=== PATIENT | female | born 1950 | race Caucasian/White ===

== ENCOUNTER 2020-05-02 13:43 | Inpatient (IN) | payer MEDICARE, OTHER ==
[~2020-05-02] VITALS: Ht 160 cm; Wt 74.6 kg
[~2020-05-02 13:43] MED LIST: ACET650S25 PO; ALLO300T2 MT; AMLO10TA80 MT; ATEN50TA MT; ATROPINE SULFATE 1MG/10ML SYR ONE; DOCU-150 PO; ETOMIDATE 2MG/ML 10ML VIAL IV ONE; GLIP10TA10 PO; OMEP20CA14 MT; ONDA4TAB5 MT; SODIUM CHLORIDE 0.9% 10ML VIAL ONE; SUCCINYLCHOLINE CHLORIDE 200MG/10ML IV ONE; VECURONIUM BROMIDE 10 MG/VIAL IV ONE
[2020-05-02] MEDS ORDERED: SODIUM CHLORIDE 0.9% 1,000 ML IV ONE (14:15)
[2020-05-02] MEDS ORDERED: NOREPINEPHRINE 8MG/250ML PMX 250 ML IV ONE (15:00)
[2020-05-02] MEDS: NOREPINEPHRINE 8 MG in DEXT 5% WATER 242 ML IV PRN (15:28)
[2020-05-02 15:40] LABS: HEMOGLOBIN. 7.3 g/dL (12.0-16.0); MEAN CORPUSCULAR HEMOGLOBIN 29.9 pg (28.0-32.0); MEAN CORPUSCULAR VOLUME 102.7 fL (81.0-99.0); MEAN PLATELET VOLUME 8.7 fl (7.4-10.4); PLATELET 198 x1000/uL (130-400); RED BLOOD CELL COUNT 2.44 mill/uL (4.2-5.4); RED CELL DISTRIBUTION WIDTH 26.8 % (11.6-14.6)
[2020-05-02 15:47] LABS: CHLORIDE 109 mEq/L (98-107)
[2020-05-02] MEDS ORDERED: VANCOMYCIN 1 G PREMIX 200 ML IV ONE (16:00)
[2020-05-02] MEDS ORDERED: PIPERACILLIN/TAZ 3.375G PREMIX 50 ML IV ONE (16:00)
[2020-05-02] MEDS ORDERED: CALCIUM CHLORIDE 1GM/10ML SYR IV NR (16:15)
[2020-05-02] MEDS ORDERED: DEXTROSE 50% WATER 50ML SYRINGE IV NR (16:15)
[2020-05-02] MEDS ORDERED: ACETAMINOPHEN 325MG TABLET PO PRN (16:15)
[2020-05-02] MEDS ORDERED: NALOXONE HCL 0.4 MG/ML 1ML VIAL IV NR (16:15)
[2020-05-02] MEDS ORDERED: INSULIN REGULAR (HUMULIN R) 300UNITS/3ML VIAL IV NR (16:15)
[2020-05-02] MEDS ORDERED: SODIUM BICARBONATE 8.4% 1 MEQ/ML 50ML SYR IV NR ×2 (16:15→17:15)
[2020-05-02] MEDS ORDERED: SODIUM POLYSTYRENE SULFONATE 15 G/60 ML BOT PO NR (16:15)
[2020-05-02] MEDS ORDERED: ONDANSETRON HCL 4MG/2ML INJ IV PRN (16:15)
[2020-05-02] MEDS ORDERED: VANCOMYCIN 500 MG PREMIX 100 ML IV NR (16:30)
[2020-05-02] MEDS ORDERED: VANCOMYCIN 1 G PREMIX 200 ML IV NR (16:30)
[2020-05-02 16:33] LABS: INR 19.8
[2020-05-02 17:12] LABS: BG BASE EXCESS -27.5 mmol/L (-2.0-2.0); BG CARBOXYHEMOGLOBIN 0.3 % (0.5-1.5); BG DEOXYHEMOGLOBIN 0.5 % (0.0-5.0); BG FRACTION INSPIRED OXYGEN 100; BG METHEMOGLOBIN 0.6 % (0.0-1.5); BG OXYGEN SATURATION 99.5 % (92.0-98.5); BG OXYHEMOGLOBIN 98.6 % (94.0-97.0); BG PCO2 31.4 mmHg (35.0-45.0); BG PH 6.823 (7.350-7.450); BG PO2 302.3 mmHg (75.0-100.0); BG SAMPLE SITE RIGHT BRACHIAL; BG TOTAL HEMOGLOBIN 8.4 g/dL (12.0-18.0); BG VENT MODE VENT - AC
[2020-05-02] MEDS ORDERED: ALBUMIN HUMAN 12.5GM/50ML (25%) IV NR (17:15)
[2020-05-02 17:46] LABS: NUCLEATED RED BLOOD CELLS 1 /100 WBC; PLATELET ESTIMATE NORMAL
[2020-05-02] MEDS ORDERED: PIPERACILLIN/TAZOBACTAM 3.375 G in DEXTROSE 5% WATER 50 ML IV SCH (18:00)
[2020-05-02] MEDS ORDERED: INSULIN REGULAR (HUMULIN R) 300UNITS/3ML VIAL IV ONE (18:45)
[2020-05-02] MEDS ORDERED: MIDAZOLAM 100MG/100ML PMX 100 ML IV PRN (18:45)
[2020-05-02] MEDS ORDERED: DEXTROSE 50% WATER 50ML SYRINGE IV ONE (18:45)
[2020-05-02] MEDS ORDERED: MIDAZOLAM HCL 100 MG in SODIUM CHLORIDE 0.9% 80 ML IV PRN ×4 (19:00)
[2020-05-02] MEDS ORDERED: NOREPINEPHRINE 8 MG in DEXT 5% WATER 242 ML IV PRN (22:00)
[2020-05-02] MEDS ORDERED: PIPERACILLIN/TAZ 3.375G PREMIX 50 ML IV SCH (22:00)
[2020-05-02] MEDS: SODIUM BICARBONATE 150 MEQ in DEXTROSE 5% WATER 1,000 ML IV SCH (22:04)
[2020-05-02] MEDS ORDERED: DOPAMINE 400MG/250ML PREMIX 250 ML IV PRN (23:45)
[2020-05-03] VITALS (21 sets, daily range): BP systolic 0–158; BP diastolic 0–120
[2020-05-03] MEDS ORDERED: EPINEPHRINE 10 MG in SODIUM CHLORIDE 0.9% 240 ML IV PRN (01:45)
[2020-05-03] MEDS: PHENYLEPHRINE 100 MG in DEXT 5% WATER 240 ML IV PRN ×2 (02:06→08:52)
[2020-05-03] MEDS: NOREPINEPHRINE 8 MG in DEXT 5% WATER 242 ML IV PRN (02:07)
[2020-05-03] MEDS: VASOPRESSIN 20 UNIT in SODIUM CHLORIDE 0.9% 99 ML IV PRN ×2 (02:10→08:19)
[2020-05-03 02:27] LABS: BG CARBOXYHEMOGLOBIN 0.3 % (0.5-1.5); BG DEOXYHEMOGLOBIN 0.3 % (0.0-5.0); BG METHEMOGLOBIN 0.4 % (0.0-1.5); BG OXYGEN SATURATION 99.7 % (92.0-98.5); BG PCO2 18.8 mmHg (35.0-45.0); BG PH < 6.680 (7.350-7.450); BG PO2 405.1 mmHg (75.0-100.0); BG TOTAL HEMOGLOBIN 9.4 g/dL (12.0-18.0)
[2020-05-03] MEDS ORDERED: SODIUM BICARBONATE 8.4% 1 MEQ/ML 50ML SYR IV NR ×2 (03:30→09:15)
[2020-05-03] MEDS: NOREPINEPHRINE 32 MG in DEXT 5% WATER 218 ML IV PRN ×2 (03:52→09:02)
[2020-05-03 05:12] LABS: CHLORIDE 99 mEq/L (98-107)
[2020-05-03] MEDS: DOPAMINE 800MG PREMIX (DOUBLE) 250 ML IV PRN ×2 (05:13→12:50)
[2020-05-03] MEDS ORDERED: SODIUM BICARBONATE 8.4% 1 MEQ/ML 50ML SYR IV SCH (07:00)
[2020-05-03] MEDS ORDERED: DEXTROSE 50% WATER 50ML SYRINGE IV SCH (07:00)
[2020-05-03] MEDS ORDERED: INSULIN REGULAR (HUMULIN R) 300UNITS/3ML VIAL IV SCH (07:00)
[2020-05-03] MEDS: IPRATROPIUM/ALBUTEROL 0.5-3(2.5)MG/3ML NEB HHN SCH ×2 (08:11→11:33)
[2020-05-03] MEDS: SODIUM BICARBONATE 150 MEQ in DEXTROSE 5% WATER 1,000 ML IV SCH (08:20)
[2020-05-03] MEDS: PIPERACILLIN/TAZOBACTAM 3.375 G in DEXT 5% WATER 100 ML IV SCH ×2 (08:20→14:00)
[2020-05-03] MEDS ORDERED: CALCIUM CHLORIDE 1,000 MG in DEXT 5% WATER 90 ML IV SCH (09:00)
[2020-05-03] MEDS ORDERED: SODIUM POLYSTYRENE SULFONATE 15 G/60 ML BOT PO SCH (09:00)
[2020-05-03] MEDS ORDERED: PANTOPRAZOLE SODIUM 40 MG/VIAL IV SCH (09:00)
[2020-05-03 09:17] LABS: BG BASE EXCESS -28.5 mmol/L (-2.0-2.0); BG CARBOXYHEMOGLOBIN 0.3 % (0.5-1.5); BG DEOXYHEMOGLOBIN 0.1 % (0.0-5.0); BG METHEMOGLOBIN 0.8 % (0.0-1.5); BG OXYGEN SATURATION 99.9 % (92.0-98.5); BG OXYHEMOGLOBIN 98.8 % (94.0-97.0); BG PCO2 17.9 mmHg (35.0-45.0); BG PH 6.842 (7.350-7.450); BG PO2 398.3 mmHg (75.0-100.0); BG SAMPLE SITE RIGHT RADIAL; BG TOTAL HEMOGLOBIN 6.6 g/dL (12.0-18.0); BG VENT MODE VENT - AC
[2020-05-03 09:24] LABS: MEAN CORPUSCULAR HEMOGLOBIN 29.8 pg (28.0-32.0); MEAN CORPUSCULAR VOLUME 114.8 fL (81.0-99.0); MEAN PLATELET VOLUME 9.3 fl (7.4-10.4); PLATELET 120 x1000/uL (130-400); RED BLOOD CELL COUNT 1.79 mill/uL (4.2-5.4)
[2020-05-03] MEDS ORDERED: PHYTONADIONE 10MG/ML AMP SUBCUT NR (09:30)
[2020-05-03 09:54] LABS: HEMATOCRIT. 20.6 % (36.0-48.0); HEMOGLOBIN. 5.4 g/dL (12.0-16.0)
[2020-05-03] MEDS ORDERED: ALBUMIN HUMAN 12.5GM/50ML (25%) IV NR (11:00)
[2020-05-03] MEDS ORDERED: DEXTROSE 50% WATER 50ML SYRINGE IV PRN (11:15)
[2020-05-03] MEDS ORDERED: INSULIN LISPRO 100 UNITS/ML SUBCUT SCH (12:00)
[2020-05-03] MEDS ORDERED: BLOOD SUGAR DIAGNOSTIC STRIP TEST SCH (12:00)
[2020-05-03 12:10] LABS: NUCLEATED RED BLOOD CELLS 4 /100 WBC; PLATELET ESTIMATE DECREASED
[2020-05-03 12:25] LABS: PROTHROMBIN TIME > 100.0 sec (9.6-11.0)
[2020-05-03 12:31] LABS: INR > 10.0
[2020-05-03 13:21] LABS: TOTAL IRON BINDING CAPACITY 387 ug/dL (250-450)
[2020-05-03] MEDS ORDERED: HYDROCORTISONE SOD SUCCINATE 100 MG/2 ML VIAL IV SCH (14:00)
[2020-05-03] MEDS ORDERED: LACTULOSE 20G/30ML UDC NG SCH (14:00)
[2020-05-03] MEDS ORDERED: SUCRALFATE 1 G/10 ML UDC NG SCH (14:15)
[2020-05-03] MEDS ORDERED: DEXTROSE 50% WATER 50ML SYRINGE IV ONE (14:15)
[2020-05-03 14:21] LABS: HEMATOCRIT 15.1 % (36.0-48.0); HEMOGLOBIN 4.2 g/dL (12.0-16.0)
[2020-05-03 15:02] LABS: VITAMIN B12 SERUM >2000 pg/mL pg/mL (211-911)
[2020-05-03 15:03] LABS: FOLIC ACID (FOLATE) SERUM >20 ng/mL ng/mL (>5.38)
[2020-05-03 17:00] LABS: FERRITIN > 8250 ng/mL (10-291)
[2020-05-03] MEDS ORDERED: INSULIN GLARGINE UD 100 UNITS/ML SYR SUBCUT SCH (22:00)
[2020-05-04] MEDS ORDERED: VANCOMYCIN 750 MG PREMIX 150 ML IV SCH (01:00)
[2020-05-04] MEDS ORDERED: PHYTONADIONE 10MG/ML AMP SUBCUT NR (09:00)
[2020-05-05] MEDS ORDERED: PHYTONADIONE 10MG/ML AMP SUBCUT NR (09:00)
== END 2020-05-03 15:25 | disposition expired | DRG 871 ==
LOC: ER 14:09 → MICUSO 15:48 → MICUNO 23:42
PROVIDERS: ADMIT Internal Medicine; ATTEND Internal Medicine
PROC: 0BH17EZ Insertion of Endotracheal Airway into Trachea, Via Natural or Artificial Opening (ICD-10-PCS; 2020-05-02)
PROC: 5A1945Z Respiratory Ventilation, 24-96 Consecutive Hours (ICD-10-PCS; 2020-05-02)
PROC: 5A12012 Performance of Cardiac Output, Single, Manual (ICD-10-PCS; principal; 2020-05-03)
DX: A41.9 Sepsis, unspecified organism (principal); E43 Unspecified severe protein-calorie malnutrition; G92 Toxic encephalopathy; J69.0 Pneumonitis due to inhalation of food and vomit; J96.01 Acute respiratory failure with hypoxia; K75.0 Abscess of liver; R65.21 Severe sepsis with septic shock; N17.0 Acute kidney failure with tubular necrosis; D68.9 Coagulation defect, unspecified; E87.4 Mixed disorder of acid-base balance; G93.1 Anoxic brain damage, not elsewhere classified; K92.0 Hematemesis; D53.9 Nutritional anemia, unspecified; E11.65 Type 2 diabetes mellitus with hyperglycemia; E78.00 Pure hypercholesterolemia, unspecified; E78.5 Hyperlipidemia, unspecified; Z51.5 Encounter for palliative care; E87.5 Hyperkalemia; I44.7 Left bundle-branch block, unspecified; I46.9 Cardiac arrest, cause unspecified; K74.60 Unspecified cirrhosis of liver; K57.90 Diverticulosis of intestine, part unspecified, without perforation or abscess without bleeding; K21.9 Gastro-esophageal reflux disease without esophagitis; Z20.822 Contact with and (suspected) exposure to COVID-19; I12.9 Hypertensive chronic kidney disease with stage 1 through stage 4 chronic kidney disease, or unspecified chronic kidney disease; D69.6 Thrombocytopenia, unspecified; E11.22 Type 2 diabetes mellitus with diabetic chronic kidney disease; N18.9 Chronic kidney disease, unspecified; R74.01 Elevation of levels of liver transaminase levels; Z85.05 Personal history of malignant neoplasm of liver; Z86.73 Personal history of transient ischemic attack (TIA), and cerebral infarction without residual deficits; Z68.29 Body mass index [BMI] 29.0-29.9, adult; K72.90 Hepatic failure, unspecified without coma
CPT/HCPCS: 36415; 36600; 71045; 80048; 80053; 80061; 82140; 82375; 82607; 82728; 82746; 82805; 82962; 83036; 83540; 83550; 83605; 83735; 84484; 85014; 85018; 85025; 85044; 86850; 86900; 86920; 87426; 92950; 93005; 94002; 94003; 94640; 99291; C9113; J0330; J0461; J1265; J1815; J2250; J2370; J2543; J3370; J3430; J3490; J7030; J7050; J7060; J7070; P9047